=== PATIENT | male | born 1945 | race Caucasian/White ===

== ENCOUNTER 2016-12-06 14:52 | Emergency (ER) | payer MEDICARE ==
[2016-12-06 15:40] VITALS: BP 144/83
--- NOTE | 2016-12-06 16:58 | RAD ---
INDICATION: Right hip and low back pain 3 days after injury COMPARISON: None TECHNIQUE: 3 views of the lumbar spine and 4 views of the right hip were obtained. FINDINGS: The visualized bones of the right hip are well-corticated and properly aligned. Degenerative changes of the right hip include mild joint space narrowing, sclerotic change of the articulating surface and mild marginal osteophyte formation.. There is no radiographic evidence of acute fracture or dislocation. Degenerative changes of the lumbar spine include loss of intervertebral disc height at the lower thoracic and lumbar spine. There is mild marginal osteophyte formation. The vertebral bodies and facet joints are otherwise appropriately aligned. Vertebral body height is maintained. IMPRESSION: Degenerative changes of the lumbar spine and right hip as described above without radiographically apparent fracture or dislocation. If the patient's symptoms persist follow-up imaging is recommended.
--- NOTE | 2016-12-06 17:21 | UC ---
Hip/Pelvis Pain - HPI Summary HPI Summary: THREE DAYS OF RIGHT HIP PAIN. POSSIBLE INJURY OF TWISTING OFF WHILE DECENDING LADDER. HX OF LUMBOSACRAL DEGENERATIVE DISC DISEASE. PAIN WORSE WITH WEIGHT BEARING/AMBULATION. - History Of Current Complaint Chief Complaint: UCLowerExtremity Stated Complaint: HIP PAIN Time Seen by Provider: 12/06/16 15:42 Hx Obtained From: Patient Onset/Duration: Sudden Onset, Lasting Days, Still Present Timing: Intermittent Episodes Lasting: Severity Initially: Moderate Severity Currently: Moderate Location: Discrete At: - RIGHT HIP Character Of Pain: Aching, Spasmodic Aggravating Factor(s): Movement, Weight Bearing Alleviating Factor(s): Rest, Position - Risk Factors Septic Arthritis Risk Factor: Negative - Allergies/Home Medications Allergies/Adverse Reactions: Allergies Allergy/AdvReac Type Severity Reaction Status Date / Time Codeine Allergy Itching Verified 12/06/16 15:40 Ciprofloxacin AdvReac GI Upset Verified 12/06/16 15:41 Iodine Contrast Dye Allergy Anaphylatic Uncoded 12/06/16 15:41 Shock Erythromycin AdvReac GI Upset Uncoded 12/06/16 15:41 Home Medications: Home Medications Acetaminophen [Extra Strength Acetaminop] 2 tab PO Q4HR PRN 12/06/16 [History Confirmed 12/06/16] Metoprolol Tartrate TAB* [Lopressor TAB*] 12.5 mg PO BEDTIME 12/06/16 [History Confirmed 12/06/16] Sertraline* [Zoloft*] 12.5 mg PO DAILY 12/06/16 [History Confirmed 12/06/16] traMADol TAB* [Ultram*] 1 tab PO ONCE 12/06/16 [History Confirmed 12/06/16] PMH/Surg Hx/FS Hx/Imm Hx Previously Healthy: Yes Endocrine History Of: Denies: Diabetes, Thyroid Disease Cardiovascular History Of: Reports: Cardiac Disorders - 2016 MV repaired, Hypertension Respiratory History Of: Denies: COPD, Asthma GI/ History Of: Reports: Kidney Stones - and bladder stones Denies: Ulcer - Surgical History Surgical History: Yes Surgery Procedure, Year, and Place: Bladder stone removal, spermatocele repair - Social History Occupation: Employed Full-time Lives: With Family Alcohol Use: Occasionally Substance Use Type: None Smoking Status (MU): Former Smoker Type: Cigarettes When Did the Patient Quit Smoking/Using Tobacco: 10/14/1998 - Immunization History Most Recent Influenza Vaccination: season Review of Systems Constitutional: Negative Skin: Negative Eyes: Negative ENT: Negative Respiratory: Negative Cardiovascular: Negative Gastrointestinal: Negative Genitourinary: Negative Motor: Negative Neurovascular: Negative Musculoskeletal: Arthralgia, Myalgia Neurological: Negative Psychological: Negative All Other Systems Reviewed And Are Negative: Yes Physical Exam Triage Information Reviewed: Yes Appearance: Well-Appearing, No Pain Distress, Well-Nourished Vital Signs: Initial Vital Signs Temp 98.6 F 12/06/16 15:31 Pulse 83 12/06/16 15:31 Resp 16 12/06/16 15:31 BP 144/83 12/06/16 15:31 Pulse Ox 98 12/06/16 15:31 Eye Exam: Normal Eyes: Positive: Conjunctiva Clear ENT Exam: Normal ENT: Positive: Normal ENT inspection Dental Exam: Normal Neck exam: Normal Neck: Positive: Supple, Nontender, No Lymphadenopathy. Negative: Nuchal Rigidity, Tenderness @ Respiratory Exam: Normal Respiratory: Positive: Chest non-tender, Lungs clear, Normal breath sounds, No respiratory distress, No accessory muscle use Cardiovascular Exam: Normal Cardiovascular: Positive: RRR, No Murmur Abdominal Exam: Normal Abdomen Description: Positive: Nontender, No Organomegaly Musculoskeletal: Positive: Strength Intact, ROM Intact, Other: - PAIN WITH DEEP PALPATION OF RIGHT FEMORAL HEAD AND ALSO GLUTEUS. Neurological Exam: Normal Psychological Exam: Normal Psychological: Positive: Normal Response To Family Hip Injury Course/Dx - Differential Dx/Diagnosis Differential Diagnosis/HQI/PQRI: Sprain, Strain Provider Diagnoses: RIGHT HIP PAIN. RIGHT PIRIFORMITIS. DEGENERATIVE DISC DISEASE Discharge - Discharge Plan Condition: Stable Disposition: HOME Prescriptions: Metaxalone TAB* [Skelaxin TAB*] 800 mg PO TID PRN #15 tab PRN Reason: Spasms Patient Education Materials: Hip Sprain (ED), Muscle Spasm (ED), Piriformis Syndrome (ED) Referrals: Wesley Cunha MD [Primary Care Provider] - Sy Simmons MD [Medical Doctor] - Additional Instructions: PHYSICAL THERAPY REFERRAL: You have been prescribed physical therapy. Treatments may include stretching, exercise, application of heat or cold, and other modalities. After an injury, PT can reduce swelling and pain. In recovery, PT is used to restore mobility and strength. Your specific treatment goals are: Reduction of Swelling (EGS, US, ice as needed) ___X__ Pain Reduction (EGS, US, ice as needed) ___X__ TENS Pack Fitting and Instruction Wound Hydrotherapy ___X__ Preservation of Mobility ___X__ Orthodoxy of Mobility ____X_ Strength Orthodoxy ___X__ Work or Sports Hardening This instruction sheet also serves as your PHYSICAL THERAPY REFERRAL! Please take it with you to the therapist, so he/she will be aware of your diagnosis and treatment plan. You may see the physical therapist of your choice for these treatments, but may wish to check with your insurance to be sure the provider you select is covered. It's important to see the doctor to whom you have been referred for follow up.
== END 2016-12-06 17:30 | disposition home or self-care (01) ==
LOC: UCEAST 14:52
DX: M25.551 Pain in right hip (principal); I10 Essential (primary) hypertension; M51.37 Other intervertebral disc degeneration, lumbosacral region; Z88.3 Allergy status to other anti-infective agents; Z88.5 Allergy status to narcotic agent; Z91.041 Radiographic dye allergy status; Z95.4 Presence of other heart-valve replacement; Z87.442 Personal history of urinary calculi; Z87.891 Personal history of nicotine dependence
CPT/HCPCS: 72100; 99211; G0463